=== PATIENT | male | born 1990 | race Asian ===

== ENCOUNTER 2016-12-07 08:39 | Emergency (ER) | payer OTHER ==
[2016-12-07 08:46] VITALS: BP 144/54; TEMP 98.6
--- NOTE | 2016-12-07 08:47 | EDPHY ---
H & P Stated Complaint: L lateral knee soreness x "many months";no known injury;amb w/ no difficulty Time Seen by Provider: 12/07/16 08:42 HPI/ROS: CHIEF COMPLAINT: Left lateral knee pain HISTORY OF PRESENT ILLNESS: The patient presents to the ED with several months of left lateral knee pain. The patient reports his symptoms are worsened by running and heavy lifting. He denies history of direct fall or trauma. He has no complaints of numbness or weakness. He has not been taking ibuprofen. The patient denies significant past medical history. The patient takes no regular medications. REVIEW OF SYSTEMS: A comprehensive 10 point review of systems is otherwise negative aside from elements mentioned in the history of present illness. Source: Patient Exam Limitations: No limitations - Personal History Current Tetanus Diphtheria and Acellular Pertussis (TDAP): Yes Tetanus Vaccine Date: < 10 - Medical/Surgical History Hx Asthma: No Hx Chronic Respiratory Disease: No Hx Diabetes: No Hx Cardiac Disease: No Hx Renal Disease: No Hx Cirrhosis: No Hx Alcoholism: No Hx HIV/AIDS: No Hx Splenectomy or Spleen Trauma: No Other PMH: NONE - Social History Smoking Status: Current some day smoker - Physical Exam Exam: General Appearance: Alert, no distress Gastrointestinal: Abdomen is soft and nontender, no masses, bowel sounds normal Neurological: Normal motor and sensory function noted to the left leg Skin: Warm and dry, no rashes Musculoskeletal: Neck is supple nontender Extremities: Tenderness to palpation along the lateral insertion of left quadriceps tendon, no left joint knee effusion Constitutional: Initial Vital Signs Temperature (C) 37 C 12/07/16 08:40 Heart Rate 70 12/07/16 08:40 Respiratory Rate 16 12/07/16 08:40 Blood Pressure 144/54 H 12/07/16 08:40 O2 Sat (%) 97 12/07/16 08:40 O2 Delivery Mode Room Air Allergies/Adverse Reactions: No Known Allergies Allergy (Verified 12/07/16 08:42) Home Medications: Medication Instructions Recorded No Medications [NO HOME 1 ea [facility] [place] 05/20/12 MEDICATIONS] Ibuprofen [Motrin (*)] 600 mg PO TID PRN #30 tab 12/07/16 Medical Decision Making ED Course/Re-evaluation: The patient presents to the ED with a left knee strain which is chronic in nature. He has not tried NSAIDs. He has nothing to suggest intra-articular pathology. I believe he is experiencing some tendinitis and potentially may be having problems with a patellofemoral tracking. The patient will be referred to our on-call orthopedic surgeon for possible referral to physical therapy. Departure - Departure Disposition: Home, Routine, Self-Care Clinical Impression: Knee sprain Qualifiers: Encounter type: initial encounter Involved ligament of knee: unspecified ligament Laterality: left Qualifier Code: (S83.92XA) Sprain of unspecified site of left knee, initial encounter Condition: Good Instructions: Knee Sprain (ED) Additional Instructions: 1. Take Ibuprofen or Motrin 600 mg by mouth three times a day. 2. Please schedule a follow-up appointment with the orthopedic surgeon you have been referred to. They may want you to undergo physical therapy if you continue to experience pain. Referrals: Rayna Kevin MD [Medical Doctor] - As per Instructions
[2016-12-07 10:04] VITALS: PULSE 72; RESP 18; O2SAT 96
== END 2016-12-07 10:04 | disposition home or self-care (01) ==
DX: S83.92XA Sprain of unspecified site of left knee, initial encounter (principal); F17.200 Nicotine dependence, unspecified, uncomplicated; X58.XXXA Exposure to other specified factors, initial encounter; Y93.89 Activity, other specified